=== PATIENT | male | born 1945 | race Caucasian/White ===

== ENCOUNTER 2018-09-28 10:25 | Day surgery (SDC) | payer MEDICARE, BC ==
[2018-09-28] MEDS ORDERED: LIDOcaine 1%/PF 5ML 10 MG/ML VIAL ONE (11:56)
[2018-09-28] MEDS ORDERED: AMLO1TAB4 (12:40)
[2018-09-28] MEDS ORDERED: AMIT-189 PO (12:40)
--- NOTE | 2018-09-28 12:41 | NUR ---
[facility] and [facility] to [facility] care for physician visit with Dean Friedman MD. New patient assessment completed with review of patient's medical history, allergies and medications. 1159 - Dr. Friedman at bedside accompanied by RN. Wound assessed, time out performed by MD/RN. Procedure performed as detailed in the physician progress/procedure note. Plan of care discussed with patient. Dressings placed per MD orders. Patient instructed on the signs and symptoms of infection and to call the [facility] if any occur or to go to the ED if we are closed: Increased pain in wound Increase in drainage from the wound Redness in the skin surrounding the wound Bleeding from the wound Temperature of 101 or greater Patient instructed that the weight of their body puts a large amount of pressure on their wounds. This pressure keeps the new tissue from growing and inhibits new blood vessels from forming. Explained that, if they continue to bear weight on a body part that has a wound, the time it takes to heal the wound increases, the wound may get worse or the wound may not heal at all. Patient verbalized understanding of all discharge instructions and plan of care and [facility] condition with no sign or symptom of distress at time of discharge.
== END 2018-09-28 12:29 | disposition home or self-care (01) ==
LOC: WOUND CARE 10:25
PROVIDERS: ATTEND Surgery
DX: C44.622 Squamous cell carcinoma of skin of right upper limb, including shoulder (principal); C44.629 Squamous cell carcinoma of skin of left upper limb, including shoulder; I10 Essential (primary) hypertension; E78.5 Hyperlipidemia, unspecified; F17.200 Nicotine dependence, unspecified, uncomplicated
CPT/HCPCS: 11602; 88305; A4663; A6449

== ENCOUNTER 2018-10-09 08:55 | Outpatient (CLI) | payer MEDICARE, BC ==
[~2018-10-09 08:55] MED LIST: AMIT-189 PO; AMLO1TAB4
== END 2018-10-09 10:45 | disposition home or self-care (01) ==
LOC: WOUND CARE 08:55 → EDSTATUS 09:00 → WOUND CARE 10:45
PROVIDERS: ATTEND Surgery
DX: C44.622 Squamous cell carcinoma of skin of right upper limb, including shoulder (principal); C44.629 Squamous cell carcinoma of skin of left upper limb, including shoulder; I10 Essential (primary) hypertension; E78.5 Hyperlipidemia, unspecified; F17.200 Nicotine dependence, unspecified, uncomplicated
CPT/HCPCS: A4663; G0463

== ENCOUNTER 2018-12-29 08:40 | Day surgery (SDC) | payer MEDICARE, BC ==
[2018-12-29] MEDS ORDERED: LIDOcaine 1%/PF 5ML 10 MG/ML VIAL ONE (09:38)
[2018-12-29] MEDS ORDERED: mupirocin 2% ointment 22GM ONE (10:31)
== END 2018-12-29 10:42 | disposition home or self-care (01) ==
LOC: WOUND CARE 08:40
PROVIDERS: ATTEND Surgery
DX: C44.622 Squamous cell carcinoma of skin of right upper limb, including shoulder (principal); C44.629 Squamous cell carcinoma of skin of left upper limb, including shoulder; I10 Essential (primary) hypertension; E78.5 Hyperlipidemia, unspecified; F17.200 Nicotine dependence, unspecified, uncomplicated
CPT/HCPCS: 11602; A6222; A4215; A6446

== ENCOUNTER 2019-01-05 08:25 | Outpatient (CLI) | payer MEDICARE, BC ==
[2019-01-05] MEDS ORDERED: LIDOcaine 2% 5ml jelly ONE (09:07)
== END 2019-01-05 10:35 | disposition home or self-care (01) ==
LOC: WOUND CARE 08:25 → EDSTATUS 08:30 → WOUND CARE 10:35
PROVIDERS: ATTEND Surgery
DX: C44.622 Squamous cell carcinoma of skin of right upper limb, including shoulder (principal); C44.629 Squamous cell carcinoma of skin of left upper limb, including shoulder; I10 Essential (primary) hypertension; E78.5 Hyperlipidemia, unspecified; F17.200 Nicotine dependence, unspecified, uncomplicated
CPT/HCPCS: A4663; A6212; G0463

== ENCOUNTER 2020-04-10 08:45 | Emergency (ER) | payer MEDICARE, BC ==
[~2020-04-10] VITALS: Ht 175.3 cm; Wt 67.1 kg
[2020-04-10] MEDS ORDERED: aspirin 81mg tab.chew PO ONE (09:40)
[2020-04-10 10:15] LABS: BASOPHILS % (AUTO) 0.5 % (0-1); EOSINOPHILS % (AUTO) 0.7 % (0-6); HEMATOCRIT 39.2 % (42.0-52.0); HEMOGLOBIN 13.1 g/dl (14.0-17.9); LYMPHOCYTES # (AUTO) 1.1 X10'3 (1.1-4.8); LYMPHOCYTES % (AUTO) 31.1 % (21-51); MEAN CORPUSCULAR HEMOGLOBIN 32.6 PG (27.0-31.0); MEAN CORPUSCULAR HGB CONC 33.5 g/dL (33.0-36.5); MEAN CORPUSCULAR VOLUME 97.5 FL (78-98); MEAN PLATELET VOLUME 7.8 FL (7.4-10.4); MONOCYTES # (AUTO) 0.3 X10'3 (0-0.9); MONOCYTES % (AUTO) 9.4 % (2-12); NEUTROPHILS # (AUTO) 2.1 X10'3 (1.8-7.7); NEUTROPHILS % (AUTO) 58.3 % (42-75); PLATELET COUNT 179 X10'3 (140-440); RED BLOOD COUNT 4.02 X10'6 (4.70-6.10); RED CELL DISTRIBUTION WIDTH 13.2 % (11.5-14.5); WHITE BLOOD COUNT 3.6 X10'3 (4.5-11.0)
[2020-04-10 10:32] LABS: ALANINE AMINOTRANSFERASE 61 U/L (12-78); ALBUMIN 3.5 G/DL (3.4-5.0); ALBUMIN/GLOBULIN RATIO 1.1 (1.1-1.5); ALKALINE PHOSPHATASE 96 IU/L (46-116); ANION GAP 7 (8-16); ASPARTATE AMINO TRANSFERASE 32 U/L (10-37); BILIRUBIN,TOTAL 0.7 MG/DL (0.1-1.0); BLOOD UREA NITROGEN 15 MG/DL (7-18); BUN/CREATININE RATIO 21.1 (5.4-32.0); CALCIUM 8.5 MG/DL (8.5-10.1); CHLORIDE 107 MMOL/L (99-107); CREATININE 0.71 MG/DL (0.60-1.10); GLUCOSE 95 MG/DL (70-104); POTASSIUM 3.9 MMOL/L (3.5-5.1); SODIUM 145 MMOL/L (135-145); TOTAL CARBON DIOXIDE 31.2 MMOL/L (24-32); TOTAL PROTEIN 6.6 G/DL (6.4-8.2); eGFR > 90 ML/MIN
[2020-04-10 10:39] LABS: MAGNESIUM 1.8 MG/DL (1.5-2.4)
[2020-04-10 12:19] VITALS: BP 125/70
== END 2020-04-10 12:15 | disposition home or self-care (01) ==
LOC: ER 08:46
DX: M25.512 Pain in left shoulder (principal); E78.00 Pure hypercholesterolemia, unspecified; I10 Essential (primary) hypertension; F17.200 Nicotine dependence, unspecified, uncomplicated; Z79.899 Other long term (current) drug therapy
CPT/HCPCS: 36415; 71045; 80053; 83735; 83880; 84484; 85025; 93005; 99285

== ENCOUNTER 2024-12-18 08:19 | Outpatient (CLI) | payer MEDICARE, BC ==
[~2024-12-18 08:19] MED LIST changes: -AMIT-189 PO; +AMIT50TA15 PO
--- NOTE | 2024-12-18 12:22 | VASCULAR REPORT ---
Carotid Duplex Date: 12/18/2024 08:49 AM Clinical History: aloc Comparison: None Technique: Duplex Doppler evaluation of the extracranial carotid and vertebral arteries including color Doppler and spectral/pulsed waveform analysis was performed. Findings: Risk Factors Hypertension: Hyperlipidemia Doppler Spectral Velocity Analysis Right Left pCCA 109/15 cm/s 105/14 cm/s 101/14 cm/s pCCA dCCA dCCA 63/12 cm/s ECA 136/ cm/s ECA 109/ cm/s pICA 77/11 cm/s 86/12 cm/s pICA 60/13 cm/s Bruno Bruno 85/18 cm/s dICA 74/12 cm/s dICA 83/20 cm/s Vert 35/5 cm/s Vert. 36/8 cm/s Subcl 130/ cm/s Subcl. 148/ cm/s ICA/CCA 0.81 ICA/CCA 1.34 Real-Time B-Mode Imaging Area Findings Right Left CCA Plaque Composition Heterogeneous Heterogeneous Plaque Description Irregular Irregular BIF Plaque Composition Heterogeneous with calcification Heterogeneous with calcification Plaque Description Irregular Irregular ICA Plaque Composition Heterogenous with calcification Heterogeneous with calcification Plaque Description Irregular Irregular Vertebral Antegrade Antegrade Subclavian Multiphasic Multiphasic CONCLUSION Moderate appearing heterogeneous calcified plaque visualized in the right carotid artery bifurcation extending into the right proximal internal carotid artery. However, no hemodynamically significant stenosis or occlusion visualized in the carotid arteries bilaterally. Less than 50% stenosis visualized in the internal carotid arteries bilaterally. Unable to rule out more significant stenosis in the right proximal internal carotid artery due to calcified plaque. The distal right internal carotid artery also appears tortuous per imaging. Less than 50% stenosis visualized in the external and common carotid arteries bilaterally. Antegrade flow visualized in the vertebral arteries bilaterally. Multiphasic waveforms were noted in the subclavian arteries bilaterally.
--- NOTE | 2024-12-19 19:04 | CARDIOLOGY REPORT ---
APPROVED REPORT EXAM: Comprehensive 2D, Doppler, and color-flow Echocardiogram. 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 4.05 cm LA Volume 97 (18-58mL) IVC 25.40 mm M-Mode Dimensions Left Atrium(MM) 3.41 (2.5-4.0cm) IVSd 0.95 (0.7-1.1cm) LVDd 4.59 (4.0-5.6cm) Aortic Root 4.24 (2.2-3.7cm) PWd 1.05 (0.7-1.1cm) Aortic Cusp Exc 2.24 (1.5-2.0cm) IVSs 1.51 cm MV EPSS 0.4 (<0.5cm) LVDs 2.97 (2.0-3.8cm) FS (%) 35 % PWs 1.49 cm ESV(Teich) 34.2 ml LVEF(%) 65 (>50%) Biplane 2D LA Volumes LA ESV A2C 102.62 mL/m2 LA ESV A4C 83.52 mL/m2 Aortic Valve AoV Peak Franck. 111.9 cm/s AoV VTI 25.6 cm AO Peak GR. 4.9 mmHg AO Mean GR. 3 mmHg LVOT VTI 21.94 cm LVOT Peak Franck. 84.5 cm/s CORTES (VMAX) 2.60 cm2 CORTES (VTI) 2.62 cm2 AV DI 0.86 % Mitral Valve MV E Velocity 81.9 cm/s MV DECEL TIME 216 ms MV A Velocity 70.1 cm/s MV PHT 76 ms E/A Ratio 1.2 MVA (PHT) 2.89 cm2 TDI E/Medial E' 11.3 Tricuspid Valve TR P. Velocity 260 cm/s RAP ESTIMATE 10 mmHg TR Peak Gr. 27 mmHg RVSP 37 mmHg Pulmonary Vein S2 Velocity 62.92 cm/s PVa Duration 128 msec LEFT VENTRICLE Normal LV size and wall thickness. Overall systolic function is normal. Overall LVEF is 65%. GLS -19.2%. RIGHT VENTRICLE RV is normal size and function. ATRIA Left atrium is mildly dilated. AORTIC VALVE Trileaflet AV appears mildly sclerotic without stenosis or insufficiency. MITRAL VALVE Mild MV annular calcification with thickened leaflets without stenosis. Trivial regurgitation. TRICUSPID VALVE TV appears structurally normal with trace regurgitation. PULMONIC VALVE Normal PV without stenosis, mild insufficiency. GREAT VESSELS Aortic root is mildly dilated (4.2cm). Normal appearing arch with normal flow velocities. 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 IVC is dilated and collapses greater than 50% with inspiration. PERICARDIUM Normal pericardium. No effusion. Other Information Study Quality: Adequate Conclusion Overall LVEF is 65%. GLS -19.2%. Normal LV size and wall thickness. Overall systolic function is normal. RV is normal size and function. Trileaflet AV appears mildly sclerotic without stenosis or insufficiency. Mild MV annular calcification with thickened leaflets without stenosis. Trivial regurgitation. TV appears structurally normal with trace regurgitation. Normal PV without stenosis, mild insufficiency. Aortic root is mildly dilated (4.2cm). Normal appearing arch with normal flow velocities. 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 Normal pericardium. No effusion.
== END 2024-12-18 23:59 | disposition home or self-care (01) ==
LOC: RAD 08:19
PROVIDERS: ATTEND Internal Medicine
DX: Z01.810 Encounter for preprocedural cardiovascular examination (principal); I08.8 Other rheumatic multiple valve diseases; I11.9 Hypertensive heart disease without heart failure; I65.23 Occlusion and stenosis of bilateral carotid arteries; I70.0 Atherosclerosis of aorta
CPT/HCPCS: 93306; 93880

== ENCOUNTER 2025-02-06 10:57 | Outpatient (CLI) | payer MEDICARE, BC ==
--- NOTE | 2025-02-07 02:20 | CONSULTATION ---
DATE OF CONSULTATION: 02/06/2025 DICTATING PHYSICIAN: Maya Blackmon M.S., [facility] [employer] MODIFIED BARIUM SWALLOW STUDY REPORT REFERRING PHYSICIAN: Michael Srivastava. HISTORY OF PRESENT ILLNESS: The patient is a 79-year-old male and consents to this evaluation. The patient's daughter was present for this evaluation. History was obtained from the patient and medical records. The patient reports symptoms of dysphagia, including a burning in his throat that has been occurring for the past 1-2 years. He notes that spicy foods trigger this burning more and that he often wakes up in the morning and can cough out items of food from his throat. He is unable to breathe through his nose until he moves around in the morning as well. The patient also reports that he choked on a pill about a year ago and that he has been having more troubles with his swallowing since then. He denies any unexplained weight loss, but does note that it is difficult for him to put weight on. He fell off his roof about 3 years ago and fractured 4 ribs at that time. CURRENT DIET: In terms of caffeine, the patient has 1 cup of coffee in the morning and 1 Coke or Pepsi in the afternoon on a daily basis. He does not utilize tobacco products but did in the past. In terms of alcohol, he consumes 3-4 times weekly. He does not consume chocolate. In terms of dairy, the patient has 1 small glass of milk on a daily basis. A typical breakfast consists of cereal with milk. He notes that he often does not eat until 5:00 or 6:00 p.m. after that and his dinner is typically at 6:00 p.m. He then would have a dessert anywhere between 5:00 and 9:00 p.m. and goes to bed at 9:30 p.m. He does not have any foods that he finds that he has to completely cut out of his diet due to difficulty swallowing and so he is on a regular texture thin liquid diet. MEDICATIONS: Atorvastatin calcium 80 mg twice daily orally, amlodipine besylate 10 mg once daily orally, amitriptyline HCl 10 mg 1 tablet at bedtime orally once daily, zolpidem tartrate 1 tablet by mouth daily at bedtime. PARAMETERS: The patient is seated in a lateral 90-degree view and administered the usual protocol of thin and nectar thick liquids, puree, and solid consistencies, as well as self-regulated boluses of thin liquids from a cup. RESULTS: In the oral stage of the swallow, lingual strength was mild to moderately reduced. The patient utilized a lingual pumping motion in order to propel the bolus from the anterior to the posterior oral cavity. There was a mild to moderate oral residue following the initial swallow of boluses. In the pharyngeal stage of the swallow, tongue base retraction was moderately reduced. Swallow initiation was delayed to the level of the vallecula. Anterior movement of the posterior pharyngeal wall was observed. Elevation of the hyothyroid complex was accomplished with mildly reduced epiglottic inversion, mild to moderately reduced anterior movement of the hyoid and within functional limits superior movement of the hyoid. There was a moderate pharyngeal residue noted after the tail of the bolus passed and a mild decrease in PES opening. This was decreased at the level of C6-C7 in which the patient had a slight variation in the placement of his vertebrae. At no time was the patient noted to penetrate or aspirate on any of the bolus sizes or consistencies. ANTERIOR, POSTERIOR VIEW: In the AP plane, the bolus split symmetrically between the piriform sinuses. There was slow motility through the esophagus of the boluses and then proximal movement as well to the level of the clavicle. IMPRESSION: The patient demonstrates what appears to be a moderate pharyngoesophageal stage swallowing disorder, characterized by moderately reduced tongue base retraction, swallow initiation delayed to the level of the vallecula, slow motility through the esophagus, and proximal movement at the boluses to the level of the clavicle. The patient also demonstrated decreased lingual strength. DIAGNOSES: * R13.14, dysphagia, pharyngoesophageal phase. * R05.9, cough. PATIENT EDUCATION: Immediately following modified barium swallow study, the patient and his daughter were able to view the results. The normal anatomy of the swallowing mechanism was revealed. The patient was able to see how the current status of the oral motor and swallowing mechanism decreases his ability to swallow normally. He was educated on the recommendation for speech therapy to strengthen the muscles involved in swallowing and agreed to participate at this time. He was also educated on strategy of utilizing an effortful swallow when he is eating and drinking and swallowing twice as well when he is eating and drinking because he would have pharyngeal residue that he would not spontaneously clear. RECOMMENDATIONS: 1. It is recommended that the patient receive swallowing therapy 1 time weekly for 12 weeks to improve the strength of the swallowing musculature to ensure airway safety protection and prevent aspiration. The patient agreed to this recommendation. He did indicate that he would prefer to have 2 visits, one to learn the exercises and the subsequent to make sure that he was doing the exercises correctly. 2. It is recommended that the patient be seen for an upper GI due to what was observed in the AP view with a slow motility through the esophagus and proximal movement to the level of the clavicle. LONG-TERM GOALS: The patient will maintain adequate hydration/nutrition with optimum safety and efficiency of swallow function on p.o. intake by demonstrating ability to complete his swallowing exercises targeting lingual strength and tongue base retraction with minimal verbal cues and visual cues. PROGNOSIS: Prognosis for the patient is good in terms of patient motivation, willingness to learn, and family support. FUNCTIONAL ORAL INTAKE: The FOIS was administered to establish and document a change in the functional eating activities of this patient over time. This is a 7-point scale with 1 indicating no oral intake and totally tube dependent and 7 indicating total oral intake with no restrictions. This patient received a 6, which indicates he has a total oral diet with multiple consistencies without special preparation, but with specific food limitations and precautions, including the spicy food items that trigger the burning in his esophagus. G-CODE: [id number]. Thank you very much for asking me to participate in the care of this kind patient. Should you have any questions regarding this evaluation or recommendations, please do not hesitate to contact me at [phone]. During this examination, 3 minutes 10 seconds of fluoroscopy time, and 16.53 CAK mGy were utilized. Maya Blackmon M.S., [facility] TID: [id number] RECEIPT: [id number] MILAN/MARCELA BARROS
== END 2025-02-06 23:59 | disposition home or self-care (01) ==
LOC: RAD 10:57
PROVIDERS: ATTEND Internal Medicine
DX: R13.14 Dysphagia, pharyngoesophageal phase (principal); R05.9 Cough, unspecified; R13.12 Dysphagia, oropharyngeal phase
CPT/HCPCS: 74230